=== PATIENT | female | born 1995 | race Caucasian/White ===

== ENCOUNTER → 2018-05-29 16:10 | Outpatient (CLI) | payer OTHER, MEDICAID, SELFPAY ==
[2018-06-03 05:59] LABS: AFP, Serum 46.7 ng/mL; Cigarette Smoker N; Donated Egg N; Donor Egg Age NOT GIVEN; Estriol, Free 1.17 ng/mL; Inhibin A, Dimeric 189 pg/mL; Maternal Weight 120 lbs; Number of Fetuses 1; Previous Pregnancy Down Syndro N; hCG, MoM 0.93; hCG, Serum 30.4 IU/mL
== END ==
PROVIDERS: Visit Provider Family Medicine
DX: Z3A.17 17 weeks gestation of pregnancy (principal)
CPT/HCPCS: 36415; 82105; 82677; 84702; 86336

== ENCOUNTER → 2018-07-02 10:07 | Outpatient (CLI) | payer OTHER, MEDICAID, SELFPAY ==
--- NOTE | 2018-07-02 10:09 | DI.US.S_ITS ---
PROCEDURE: US OB >= 14 WEEKS FETUS INDICATIONS: anatomy screening OUTSIDE/PRIOR DATING DATA: Last menstrual period (LMP): 01/24/18. LMP-based estimated date of delivery (KAMINI): 10/31/18. First dating scan (date and location): 07/02/18. Estimated date of delivery (KAMINI) from first dating scan: 11/04/18. TECHNIQUE: Real-time scanning was performed of the fetus, with image documentation and biometric measurements. Endovaginal scanning: No COMPARISON: None. FINDINGS: General: A single living intrauterine gestation is present. Presentation: Transverse. Placenta: Placental position is fundal, without previa. Amniotic fluid index: 20.9 cm, normal range is 5-24 cm. heart rate: 135 beats per minute. Maternal cervical canal: 4.1 cm long. Normal lower limit is 2.5 cm. biometrics: Biparietal diameter: 22 weeks 3 days Head circumference: 22 weeks 2 days Abdominal circumference: 21 weeks 6 days Femur length: 21 weeks 6 days Estimated gestational age from initial scan: not applicable. Composite gestational age from present scan: 22 weeks 1 day Estimated weight and percentile: 463 g; 13% Measurement variability for biometric dating: +/- 7 days from 14 weeks to 15 weeks 6 days gestation, +/- 10 days from 16 weeks to 21 weeks 6 days gestation, +/- 2 weeks from 22 weeks to 27 weeks 6 days gestation, +/- 3 weeks for 28 weeks gestation or later. weight reference: 4500 g or EFW >90/95% is considered macrosomia or large for gestational age. EFW <10% is small for gestational age. EFW 5% or less is considered intra-uterine growth restriction. Anatomic survey: Neuro: Ventricles are non-dilated at less than 10 mm. Cisterna magna is normal at 3-11 mm. Cerebellum is normal in size and morphology. Nuchal skin fold: Normal at less than 6 mm between 14-21 weeks gestational age. Face: Nose and lips, facial profile are normal. Spine: No evidence for spina bifida. Heart: 4-chambered heart is present, with normal ventricular outflow tracts. Diaphragm: Diaphragm is intact. Stomach: Left-sided stomach is present. Kidneys: No hydronephrosis. Normal is less than 5 mm in 2nd trimester, less than 7 mm in 3rd trimester. Cord: 3-vessel cord has orthotopic insertion. Bladder: Normal in size. Extremities: All 4 extremities identified. IMPRESSION: Single living IUP as above and anatomic survey is normal. Dictated by: Ashu Kent [facility] Interpreted: Navarro Chambers MD on 07/02/2018 at 11:52 Approved by: Navarro Chambers M.D. on 07/02/2018 at 16:38
== END ==
PROVIDERS: Visit Provider Family Medicine
DX: Z36.89 Encounter for other specified antenatal screening (principal); Z3A.22 22 weeks gestation of pregnancy
CPT/HCPCS: 76811

== ENCOUNTER → 2018-08-08 16:36 | Outpatient (CLI) | payer OTHER, MEDICAID, SELFPAY ==
[2018-08-08 18:05] LABS: Hematocrit 34.8 % (36-46); Hemoglobin 11.9 g/dL (12.0-16.0)
[2018-08-08 18:30] LABS: GTT (PREG) 1 Hour PP 50gm Dose 126 mg/dL (76-139)
== END ==
PROVIDERS: Visit Provider Family Medicine
DX: O09.899 Supervision of other high risk pregnancies, unspecified trimester (principal); Z3A.26 26 weeks gestation of pregnancy; Z67.91 Unspecified blood type, Rh negative
CPT/HCPCS: 36415; 82950; 85014; 85018; 86850

== ENCOUNTER → 2018-10-09 14:37 | Outpatient (CLI) | payer OTHER, MEDICAID, SELFPAY ==
[2018-10-10 18:38] LABS: Strep Grp B PCR NEG for Grp B Strep
== END ==
PROVIDERS: Visit Provider Family Medicine
DX: Z34.03 Encounter for supervision of normal first pregnancy, third trimester (principal); Z3A.36 36 weeks gestation of pregnancy
CPT/HCPCS: 87653

== ENCOUNTER 2018-11-05 14:35 | Inpatient (IN) | payer OTHER, MEDICAID, SELFPAY ==
--- NOTE | 2018-11-05 15:12 | P.HPOB_ITS ---
OB HPI Date/Time Date of admission: 11/05/18 Date Patient Seen: 11/05/18 Time Patient Seen: 16:45 History of Present Condition Chief complaint: OBS : 1 Para: 0 Estimated Date of Delivery: 11/06/18 Estimated Gestational Age (weeks): 40w 6d Narrative: Elena Flores is a 23 year old at 39+6 weeks gestation who presented with spontaneous rupture of membranes at 1:30 pm the day of admission. She received regular care. complicated by frequent marijuana use early in the which she quit group home through the . Also anxiety treated with sertraline. History of Present care: good care, initiated at week # (14), number of visits (11) and pounds weight gain (47 lbs) Dating criteria: based on 1st trimester US only Ultrasounds: normal mid trimester US Obstetrical complications: none Medical complications: none Preadmission Labs Blood type: 0 (-) negative -: Antibody screen: negative, GBS status: negative, HBsAG: negative, HIV: negative and RPR/VDLR: negative -: Chlamydia screen: not detected and Gonorrhea screen: not detected -: Rubella: immune HCT: 35.1 HCAB: negative Quad screen: Normal Urine: Negative 1 hr GTT: 126 Evaluation Evaluation Baseline heart rate: 120 Variability: Moderate (11-25) monitor accelerations: Present monitor decelerations: Absent Uterine Contraction Intensity: Moderate Category of Tracing: I Cervical dilation (cm): 1 Cervical effacement (%): 50 station: -3 Non-invasive Membranes Rupture Test: positive PFSH Medical History Anxiety (Chronic) Lactose intolerance (Chronic) Surgical History Boxers fracture (Resolved) Family History Father Hypertension Mother Hypertension Social History marital status: unmarried,living together occupational status: employed Smoking Status: Current every day smoker alcohol intake: never substance use type: marijuana Family History Father Hypertension Mother Hypertension Social History marital status: unmarried,living together occupational status: employed Smoking Status: Current every day smoker alcohol intake: never substance use type: marijuana Meds Home Medications Medication Instructions Recorded Confirmed Type doxylamine succinate 25 mg tablet 25 mg PO BEDTIME PRN 05/14/18 05/14/18 History omega-3 fatty acids 1,000 mg 1,000 mg PO DAILY 05/14/18 05/14/18 History capsule 1 tab PO DAILY 05/14/18 05/14/18 History vitamin,calcium,wrpoxjxc-rlyq-lltew acid tablet pyridoxine (vitamin B6) 100 mg 50 mg PO DAILY 05/14/18 05/14/18 History tablet sertraline 25 mg tablet 25 mg PO DAILY #30 tab 06/18/18 Rx ondansetron 4 mg disintegrating 4 mg PO TID PRN #20 tab 09/19/18 Rx tablet Allergies Allergy/AdvReac Type Severity Reaction Status Date / Time No Known Drug Allergies Allergy Unverified 05/14/18 11:27 Review of Systems Constitutional Constitutional: Denies fatigue and Denies fever(s) ENT Ears, Nose, Mouth, and Throat: Yes nasal congestion Respiratory Respiratory: Denies cough Gastrointestinal Gastrointestinal: Denies abdominal pain, Denies nausea and Denies vomiting Endocrine Endocrine: Denies fatigue Exam Const General: cooperative, healthy appearing and comfortable [facility] Head: normal to inspection Ears: hearing grossly normal bilaterally Nose: external nose normal Face and sinus: normal facial exam Mouth: oral mucosae normal Teeth and gingiva: dentition normal Eyes General: appearance normal, both eyes and all related structures Resp Effort & Inspection: normal respiratory effort Auscultation: clear to auscultation bilaterally Cardio Rate: regular rate Rhythm: regular rhythm Heart Sounds: no murmurs External Female Exam: external appearance normal Manual OB Exam: dilated 1, effaced 50% and station (-3) Uterus Location (Fundal Height): 39 Presentation: vertex Estimated Weight (lbs): 7 Amniotic Fluid: clear Objective Labs Result Diagrams: 11/05/18 15:45 Assessment and Plan Assessment and Plan Assessment and Plan narrative: 30-year-old at 39 and 6 weeks gestation with spontaneous rupture of membranes at approximately 1:30 p.m. today. GBS negative. Patient presented to the center with painful contractions. SVE 50/-3. Cervix is unfavorable with a Diaz score of 4. Plan - Will start oral misoprostol for augmentation due to rupture of membranes followed by Pitocin if needed - Epidural upon request
[2018-11-05] MEDS: LACTATED RINGERS 1,000 ML 100 ML IV (15:45)
[2018-11-05 16:08] LABS: Add Manual Diff / Slide Review NO; Basophils Absolute Auto 0 /uL (0-100); Basophils Percent Auto 0.2 % (0-2); Eosinophils Absolute Auto 0 /uL (0-450); Eosinophils Percent Auto 0.3 % (2-4); Hematocrit 35.9 % (36-46); Hemoglobin 12.4 g/dL (12.0-16.0); Lymphocytes Absolute Auto 1800 /uL (1100-4500); Lymphocytes Percent Auto 17.1 % (25-40); Mean Corpuscular HGB Conc 34.5 % (30-36); Mean Corpuscular Hemoglobin 33.4 PG (26-34); Mean Corpuscular Volume 96.9 fL (80-100); Monocytes Absolute Auto 500 /uL (0-900); Neutrophils Absolute Auto 7900 /uL (1500-7000); Neutrophils Percent Auto 77.4 % (50-75); Platelet Count 195 X10^3/uL (150-400); Red Blood Cell Count 3.71 X10^6/uL (4.0-5.2); Red Cell Distribution Width 13.4 % (11.6-14.8); White Blood Cell Count 10.2 X10^3/uL (4.5-11.0)
[2018-11-05 16:40] VITALS: BP 119/85
[2018-11-05] MEDS: ONDANSETRON 4 MG/2 ML INJ IV (18:17)
[2018-11-05] MEDS: miSOPROStol 25 MCG TABLET PO (18:19)
[2018-11-05] MEDS: ZOLPIDEM 5 MG TABLET PO (22:28)
[2018-11-06 02:26] VITALS: TEMP 36.2
[2018-11-06] MEDS: fentaNYL 100 MCG/2 ML INJ 50 MCG IV ×3 (02:26→08:21)
[2018-11-06] MEDS: LACTATED RINGERS 1,000 ML 100 ML IV ×3 (02:30→10:16)
[2018-11-06 04:31] VITALS: TEMP 36.6
--- NOTE | 2018-11-06 08:12 | PM.OBPNLAB ---
Date/Time Date Patient Seen: 11/06/18 Time Patient Seen: 07:30 Pain Control Pain control: tolerating well Comments: Slept for two hours after last dose of fentanyl. No longer feeling contractions. Pelvic Exam Dilation (cm): 2 Effacement (%): 80 station: -2 Amniotic membrane status: Ruptured Comments: AROM clear fluid Contractions Monitor mode: External Contraction pattern: Irregular Contraction intensity: Mild Status status: Category l Heart Rate Baseline: 115 Monitor Accelerations: Present Monitor Decelerations: Absent Monitor Variability: Moderate Assessment and Plan Plan: begin patient augmentation Comments: Patient progressed with one dose of oral Cytotec overnight then contractions decreased. Though patient came in with ROM, there was a bulging bag on exam. AROM with clear fluid. Will begin pitocin.
[2018-11-06] MEDS: OXYTOCIN PREMIX 30 UNIT/500 ML PLAST..BAG IV (08:15)
[2018-11-06] MEDS: ONDANSETRON 4 MG/2 ML INJ IV (08:23)
--- NOTE | 2018-11-06 13:07 | PM.OBPRVD ---
Delivery date: 11/06/18 Cervical ripening method: per misoprostal protocol Induction method: per pitocin protocol Delivery augmentation: rupture of membranes Delivery monitor: external FHT Route of delivery: L&D Laceration Description: Labial (left) Delivery repair: chromic (4-0) Estimated blood loss (mL): 300 Anesthesia type: Epidural Narrative: BRIEF HISTORY: Patient is a 23-year-old at 40 weeks who gave on 11/06/18 at 12:32 p.m.. KAMINI: 11/06/18 Hospital problems: 40 weeks Epidural analgesia STAGE I: Labor Contractions began on 11/05/18 at 7:30 a.m.. Spontaneous rupture of membranes occurred 11/05/18 at approximately 1:30 p.m. with leaking of fluid. Patient presented to the center where she was AmniSure positive. Contractions were irregular on admission. Cervix was unfavorable so she was given 1 dose of oral Cytotec. Contractions and became regular and she progressed slowly overnight. On 11/06/18 cervix was 2 cm with a bulging bag. Artificial rupture of membranes revealed clear fluid. She progressed after initiation of Pitocin and was complete at 11:48 a.m.. heart tones were category 1 throughout stage I. She received an epidural for pain control. Stage I lasted 28 hours. STAGE II: Delivery The second stage of labor lasted 44 minutes. Spontaneous vaginal delivery occurred at 12:32 p.m. to a vigorous female . There was a nuchal cord x1 which was reduced. was vertex and JESUS. She was immediately placed on mother's chest. Cord was clamped and cut after pulsation ceased per parent's request. Apgars were 8 and 9. heart tones were category 2 throughout stage II due to decelerations. No resuscitation of the acquired. STAGE III: Placenta/Cord [employer] and delivered spontaneously after active management with a three-vessel cord and appeared intact. Stage III duration 8 minutes. A left labial laceration was repaired with 4 0 chromic in the usual fashion. Hemostasis achieved. No complications. EBL: 300 mL. Needle and sponge counts were correct. The vagina was inspected and no items were left in situ. Patient was doing well with Margy, her and boyfriend at bedside. Baby 1: gender: Female Presentation: vertex position: Right Occiput Anterior Placenta delivery description: Spontaneous cord vessel description: Nuchal Cord (x1, reduced) score (1 min): 8 score (5 min): 9
--- NOTE | 2018-11-06 13:10 | P.PCNOB_ITS ---
Delivery date: 11/06/18 Cervical ripening method: per misoprostal protocol Induction method: per pitocin protocol Delivery augmentation: rupture of membranes Delivery monitor: external FHT Route of delivery: L&D Laceration Description: Labial (left) Delivery repair: chromic (4-0) Estimated blood loss (mL): 300 Anesthesia type: Epidural Narrative: BRIEF HISTORY: Patient is a 23-year-old at 40 weeks who gave on 11/06/18 at 12:32 p.m.. KAMINI: 11/06/18 Hospital problems: 40 weeks Epidural analgesia STAGE I: Labor Contractions began on 11/05/18 at 7:30 a.m.. Spontaneous rupture of membranes occurred 11/05/18 at approximately 1:30 p.m. with leaking of fluid. Patient presented to the center where she was AmniSure positive. Contractions were irregular on admission. Cervix was unfavorable so she was given 1 dose of oral Cytotec. Contractions and became regular and she progressed slowly overnight. On 11/06/18 cervix was 2 cm with a bulging bag. Artificial rupture of membranes revealed clear fluid. She progressed after initiation of Pitocin and was complete at 11:48 a.m.. heart tones were category 1 throughout stage I. She received an epidural for pain control. Stage I lasted 28 hours. STAGE II: Delivery The second stage of labor lasted 44 minutes. Spontaneous vaginal delivery occurred at 12:32 p.m. to a vigorous female . There was a nuchal cord x1 which was reduced. was vertex and JESUS. She was immediately placed on mother's chest. Cord was clamped and cut after pulsation ceased per parent's request. Apgars were 8 and 9. heart tones were category 2 throughout stage II due to decelerations. No resuscitation of the acquired. STAGE III: Placenta/Cord Marinator and delivered spontaneously after active management with a three- vessel cord and appeared intact. Stage III duration 8 minutes. A left labial laceration was repaired with 4 0 chromic in the usual fashion. Hemostasis achieved. No complications. EBL: 300 mL. Needle and sponge counts were correct. The vagina was inspected and no items were left in situ. Patient was doing well with Margy, her and boyfriend at bedside. [place] Baby 1: Infant gender: Female Presentation: vertex position: Right Occiput Anterior Placenta delivery description: Spontaneous cord vessel description: Nuchal Cord (x1, reduced) score (1 min): 8 score (5 min): 9
[2018-11-06] MEDS: DERMOPLAST SPRAY 20% 60 ML 1 SPRAY TOP (16:21)
[2018-11-06] MEDS: IBUPROFEN 600 MG TABLET PO ×2 (16:22→22:47)
--- NOTE | 2018-11-07 08:35 | P.DS_ITS ---
Discharge Providers Date of admission: 11/05/18 14:35 Discharge Date: 11/07/18 Consults: 11/06/18 16:02 Consult to Director Of Corporate Strategy Routine Comment: Discharge provider: Tati Cueva DO Summary Date Patient Seen: 11/07/18 Time Patient Seen: 08:00 Procedures: Spontaneous vaginal delivery Epidural anesthesia Hospital Course: Patient is a 23-year-old G1 now P1 status post spontaneous vaginal delivery on 11/06/18. Patient presented on 11/05/18 with spontaneous rupture of membranes. She received 1 dose of oral Cytotec as cervix was quite unfavorable. She progressed slowly overnight was started on Pitocin augmentation on 11/06/18. She progressed well and delivered a vigorous female . She received an epidural for pain control. A left labial tear was repaired in the usual fashion. course was unremarkable. Patient was ambulating, voiding and passing flatus. Bleeding was moderate. Pain well controlled with ibuprofen. Breast- feeding initiated though she was having some difficulty and requiring assistance. No issues in . Peripartum Data Delivery Method: Natural Vaginal Laceration description: Labial (Left) complications: none [place] 1: Gender: Female Disposition of : home Discharge Diagnosis (1) Spontaneous vaginal delivery: Status: Acute (2) 40 weeks gestation of : Status: Acute Status at Discharge Cognitive/behavioral status at discharge: at baseline, oriented Functional status at discharge: independent ambulation Overall status at discharge: patient is progressing back to baseline Time Spent with Patient Total time spent providing and/or coordinating discharge services: Less than 30 minutes Objective Labs Result Diagrams: 11/05/18 15:45 Exam Vital Signs (past 8 hours): Temperature 99.5? blood pressure 119/85 heart rate 78 respirations 16 Narrative Exam Narrative: General: Awake and alert, no acute distress. HEENT: NCAT, EOMI, moist oral mucosa CV: Regular rate and rhythm, no murmurs, rubs or gallops Lungs: CTAB, no wheezes, rales, or rhonchi Abdomen: Soft, nontender; bowel tones active; uterus firm 1 cm below umbilicus Extremities: Warm, trace edema bilaterally, 2+ pedal pulses bilaterally Discharge Plan Discharge Plan Patient Disposition: Home Discharge comment: Advised patient to call for fevers, severe pain or bleeding through more than a pad an hour. Discharge Med Rec/Prescriptions Prescriptions: New ibuprofen 600 mg Tablet 600 mg PO Q6HR PRN (Reason: Pain, Mild (1-3)) Qty: 30 RF: 0 docusate sodium 250 mg Capsule 250 mg PO DAILY Qty: 30 RF: 0 Continued omega-3 fatty acids 1,000 mg capsule 1,000 mg PO DAILY RF: 0 prenat.vits,janel,bfq-qsvi-uddjx [ Vitamin] tablet 1 tab PO DAILY RF: 0 sertraline 25 mg tablet 25 mg PO DAILY Qty: 30 RF: 6 Discontinued ondansetron 4 mg tablet,disintegrating 4 mg PO TID PRN (Reason: nausea and vomiting) Qty: 20 RF: 0 pyridoxine (vitamin B6) 100 mg tablet 50 mg PO DAILY RF: 0 doxylamine succinate [Unisom (doxylamine)] 25 mg tablet 25 mg PO BEDTIME PRNRF: 0 Follow up/Referrals: Tati Cueva DO [Physician] - 6 Weeks Discharge Data Attending Provider: Tati Cueva Admit Date/Time: 11/05/18 14:35
[2018-11-07] MEDS: IBUPROFEN 600 MG TABLET PO (09:41)
[2018-11-07] MEDS: LANOLIN OINT 7 GM 1 APPLIC TOP (09:41)
[2018-11-07] MEDS: DOCUSATE 250 MG CAPSULE PO (10:50)
[2018-11-07 13:45] VITALS: BP 110/70; PULSE 54; RESP 16; TEMP 36.6
[2018-11-08] MEDS: IBUPROFEN 600 MG TABLET PO ×2 (02:27→10:06)
--- NOTE | 2018-11-08 10:04 | P.PNOB_ITS ---
Subjective - OB Patient comments: no complaints, pain well controlled, tolerating diet and flatus present baby status: doing well and nursing well [place] feeding status: exclusively breast feeding Narrative: Doing well this morning. Mother requested to stay an additional night yesterday for breast-feeding support. is going well with and without any nipple shield. Mother is ready to go home today. Bleeding is moderate. Pain well controlled with ibuprofen. Date Patient Seen: 11/08/18 Time Patient Seen: 07:46 Exam Vital Signs (past 8 hours): Temperature 98.5? blood pressure 121/68 heart rate 62 General: Awake and alert, no acute distress. HEENT: NCAT, EOMI, moist oral mucosa CV: Regular rate and rhythm, no murmurs, rubs or gallops Lungs: CTAB, no wheezes, rales, or rhonchi Abdomen: Soft, nontender; bowel tones active; uterus firm 1 cm below umbilicus Extremities: Warm, no edema, 2+ pedal pulses bilaterally Objective Labs Result Diagrams: 11/05/18 15:45 Assessment & Plan (1) Spontaneous vaginal delivery: Status: Acute Current Visit: Yes (2) 40 weeks gestation of : Status: Acute Current Visit: Yes Plan plan OB: routine care Comments: Discharge home today. Please refer to discharge summary from yesterday. Follow-up in 6 weeks for visit. Time Spent With Patient Total time spent is greater than 50% in coordination of care (as documented) at patient's floor/unit and/or counseling patient: 15-24 minutes
[2018-11-08] MEDS: DOCUSATE 250 MG CAPSULE PO (10:06)
[2018-11-08 11:36] VITALS: BP 121/79; PULSE 65; RESP 16; TEMP 37.2
== END 2018-11-08 14:55 | disposition home or self-care (01) | DRG 560 ==
PROVIDERS: Admitting Provider Family Medicine; Visit Provider Family Medicine
DX: O42.02 Full-term premature rupture of membranes, onset of labor within 24 hours of rupture (principal); O69.81X0 Labor and delivery complicated by cord around neck, without compression, not applicable or unspecified; Z37.0 Single live birth; Z3A.40 40 weeks gestation of pregnancy; O70.0 First degree perineal laceration during delivery
CPT/HCPCS: 01967; 59050; 59200; 59409; 85025; 86850; 86900; 86901; G0379; J2405; J2590; J3010

== ENCOUNTER → 2018-11-22 15:49 | Outpatient (CLI) | payer OTHER, MEDICAID, SELFPAY | PROVIDERS: Visit Provider Family Medicine | DX: N89.8 Other specified noninflammatory disorders of vagina (principal) | CPT/HCPCS: 87210 ==